=== PATIENT | male | born 1950 | race Caucasian/White ===

== ENCOUNTER 2022-04-01 21:33 | Inpatient (IN) | payer MEDICARE ==
[2022-04-01] MEDS ORDERED: HEPARIN SODIUM 1,000 UN/ML (10ML VL) IV ONE (21:59)
[2022-04-01] MEDS ORDERED: NITROGLYCERIN OINT 1 INCH/GM PACKET TOPICAL STA (21:59)
[2022-04-01] MEDS ORDERED: ASPIRIN 81 MG PO STA (21:59)
[2022-04-01] MEDS ORDERED: HEPARIN SOD,PORK IN 0.45% NACL 25,000 UNIT in 0.45% NACL 1 250ML.BAG IV SCH (22:00)
--- NOTE | 2022-04-01 22:04 | ED ---
Chest Pain HPI - General Chief Complaint: Chest Pain Stated Complaint: Chest Pain Time Seen by Provider: 04/01/22 21:48 Source: patient, family, RN notes reviewed Mode of arrival: ambulatory Limitations: no limitations - History of Present Illness Initial Comments: 71-year-old male with a history of hypertension a closed head injury who is asked she scheduled for a cardiac catheterization in 4 days who presents tonight with complaints of chest heaviness which started about one hour ago associated with shortness of breath. It was 10/10 severity he took nitroglycerin at home with improvement to 4/10 no fevers chills sweats no other current complaints or modifying factors MD Complaint: chest pain - Related Data Allergies Allergy/AdvReac Type Severity Reaction Status Date / Time egg Allergy Nausea & Verified 04/01/22 21:47 Vomiting & Diarrhea Penicillins Allergy Rash/Hives Verified 04/01/22 21:47 Review of Systems ROS Statement: Those systems with pertinent positive or pertinent negative responses have been documented in the HPI. ROS Other: All systems not noted in ROS Statement are negative. EKG Findings - EKG Results: EKG: interpreted by HILDA, sinus rhythm [place] [address] QRS duration 150 QT since QTC 451/452 that exodeviation right bundle-branch block pattern moderate T-wave abnormality) Past Medical History Past Medical History: Hypertension Additional Past Medical History / Comment(s): head injury History of Any Multi-Drug Resistant Organisms: None Reported Past Surgical History: Heart Catheterization Past Psychological History: Anxiety Smoking Status: Never smoker Past Alcohol Use History: None Reported Past Drug Use History: None Reported General Exam - General Exam Comments Initial Comments: This is a well-developed well-nourished awake alert oriented times 4 male Limitations: no limitations General appearance: alert, anxious Head exam: Present: atraumatic, normocephalic, normal inspection Eye exam: Present: normal appearance, PERRL, EOMI. Absent: scleral icterus, conjunctival injection, periorbital swelling ENT exam: Present: normal exam, mucous membranes moist Neck exam: Present: normal inspection, full ROM, other. Absent: tenderness, meningismus, lymphadenopathy Respiratory exam: Present: normal lung sounds bilaterally. Absent: respiratory distress, wheezes, rales, rhonchi, stridor Cardiovascular Exam: Present: regular rate, normal rhythm, normal heart sounds. Absent: systolic murmur, diastolic murmur, rubs, gallop, clicks GI/Abdominal exam: Present: soft, normal bowel sounds. Absent: distended, tenderness, guarding, rebound, rigid Extremities exam: Present: normal inspection, full ROM, normal capillary refill. Absent: tenderness, pedal edema, joint swelling, calf tenderness Back exam: Present: normal inspection Neurological exam: Present: alert, oriented X3, CN II-XII intact Psychiatric exam: Present: normal affect, normal mood Skin exam: Present: warm, dry, intact, normal color. Absent: rash Course Vital Signs 04/01/22 04/01/22 04/01/22 21:40 22:00 22:29 Temperature 97.5 F L Pulse Rate 62 87 Respiratory 18 20 20 Rate Blood Pressure 144/70 153/91 O2 Sat by Pulse 96 97 Oximetry 04/01/22 22:46 Temperature Pulse Rate 65 Respiratory 20 Rate Blood Pressure 142/80 O2 Sat by Pulse 99 Oximetry - Reevaluation(s) Reevaluation #1: 04/01/22 23:23 Reevaluation patient finds that he is pain-free after treatment rendered. Chest Pain MDM - MDM Imaging reviewed no acute findings. I did discuss findings with patient family members as well as with Dr. Goodman patient be admitted for inpatient evaluation and treatment consultation by Dr. Croft. Critical Care Time Critical Care Time: Yes Total Critical Care Time: 31 Critical Care Time: Critical care time includes initial presentation with history physical labs x- rays reevaluation patient responsive therapy review of old charting was available. Discussed with patient family regarding findings discussion with the admitting physician admission orders and documentation of the above Disposition Clinical Impression: Non-STEMI (non-ST elevated myocardial infarction), Chest pain Disposition: ADMITTED IP TO THIS [facility] Condition: Stable Referrals: Cisco Snow MD [Primary Care Provider] - 1-2 days Decision Date: 04/01/22 Decision Time: 23:24
--- NOTE | 2022-04-01 22:14 | XR ---
EXAMINATION TYPE: XR chest 2V DATE OF EXAM: 04/01/2022 COMPARISON: NONE HISTORY: Chest pain TECHNIQUE: 2 views FINDINGS: Heart is normal. Lungs are clear of infiltrate. Diaphragm is normal. Bony thorax is intact. There are chest leads IMPRESSION: Normal chest.
[2022-04-01 22:24] LABS: Basophils # (A) 0.1 k/uL (0-0.2); Basophils % (A) 1 %; Eosinophils # (A) 0.6 k/uL (0-0.7); Eosinophils % (A) 7 %; HCT 43.2 % (39.0-53.0); HGB 14.6 gm/dL (13.0-17.5); Lymphocytes # (A) 3.8 k/uL (1.0-4.8); Lymphocytes % (A) 41 %; MCH 30.9 pg (25.0-35.0); MCHC 33.8 g/dL (31.0-37.0); MCV 91.5 fL (80.0-100.0); Monocytes # (A) 0.5 k/uL (0-1.0); Monocytes % (A) 6 %; Neutrophils # (A) 3.9 k/uL (1.3-7.7); Neutrophils % (A) 43 %; Platelet Count 190 k/uL (150-450); RBC 4.72 m/uL (4.30-5.90); RDW 14.3 % (11.5-15.5); WBC 9.1 k/uL (3.8-10.6)
[2022-04-01 22:37] LABS: ALT 19 U/L (4-49); AST 25 U/L (17-59); African American GFR (CKD) >90 (>60 ml/min/1.73 sqM); Alkaline Phosphatase 35 U/L (38-126); Anion Gap 9 mmol/L; Blood Urea Nitrogen 11 mg/dL (9-20); Calcium 8.9 mg/dL (8.4-10.2); Carbon Dioxide 25 mmol/L (22-30); Chloride 106 mmol/L (98-107); Glucose 202 mg/dL (74-99); Lipase 112 U/L (23-300); Non-African American GFR(CKD) 81 (>60 ml/min/1.73 sqM); Potassium 4.1 mmol/L (3.5-5.1); Sodium 140 mmol/L (137-145); Total Bilirubin 0.2 mg/dL (0.2-1.3); Total Protein 6.5 g/dL (6.3-8.2)
[2022-04-01 22:40] LABS: INR 0.9 (<1.2); Partial Thromboplastin Time 24.2 sec (22.0-30.0); Prothrombin Time 10.2 sec (9.0-12.0)
[2022-04-01] MEDS ORDERED: NITROGLYCERIN SL TABS 0.4 MG TAB SUBLINGUAL PRN (23:25)
[2022-04-02] MEDS: ACETAMINOPHEN TAB 325 MG TAB PO PRN ×2 (03:20→15:41)
[2022-04-02] MEDS ORDERED: ATORVASTATIN 80 MG TAB PO STA (08:51)
[2022-04-02] MEDS ORDERED: ALPRAZolam 0.25 MG TAB PO PRN (08:51)
[2022-04-02] MEDS ORDERED: ALPRAZolam 0.5 MG TAB PO PRN (08:51)
[2022-04-02] MEDS ORDERED: ATORVASTATIN 10 MG TAB PO SCH (09:00)
[2022-04-02] MEDS ORDERED: SODIUM CHLORIDE 0.9% 1,000 ML in EMPTY BAG 1 BAG IV SCH (09:00)
[2022-04-02] MEDS ORDERED: ASPIRIN 325 MG TAB PO SCH (09:00)
[2022-04-02] MEDS: METOPROLOL SUCCINATE (ER) 50 MG TAB.ER.24H PO SCH (09:25)
--- NOTE | 2022-04-02 09:42 | P.CRDCN ---
History of Present Illness History of present illness: HISTORY OF PRESENTING ILLNESS This is a pleasant 71 year-old male past medical history significant for hypertension, type 2 diabetes, and closed head injury. He follows in the office with Dr. Croft. We have been asked to see in consultation for chest pain. Patient presents to the ER with complaints of worsening chest heaviness and shortness of breath. His chest discomfort and shortness of breath is aggravated by exertion and activity. Non-radiating. No specific alleviating factors, Nitro did not help. It has progressively gotten worse over the past 2 weeks. No associated diaphoresis, nausea, vomiting, lightheadedness, dizziness or syncope. He denies symptoms of orthopnea or PND. He does not have a history of MS, CAD, or Stroke. He denies tobacco use, quit 40+ years ago. Patient recently was evaluated in the office, he underwent Lexiscan stress test which was abnormal. Plan for cardiac catheterization on 04/05/2022 was scheduled. DIAGNOSTICS EKG reveals sinus rhythm, heart rate 60, right bundle-branch block, left axis deviation, T-wave inversions in anterior and lateral leads. Prior EKG in the office 12/2021 was similar T wave abnormalities. Recent Lexiscan in the office 02/08/2022= revealed abnormal perfusion study with reversible ischemia involving the inferolateral segment. Generalized hypokinesia more pronounced on the septal area with an EF of about 30% Recent Echo in the office 03/16/22- EF 70%, LV hyperdynamic, mild AR, Mild MR, moderate TR. Last Cardiac Catheterization 2015 revealed no significant coronary artery disease. Questionable plaque in the bifurtcation of the LAD and diagonal branch Telemetry tracings indicate sinus mechanism Chest xray no acute cardiopulmonary process Laboratory reviewed, troponin 0.062, CBC unremarkable, sodium 140, potassium 4.1, BUN 11, serum creatinine 0.9, magnesium 2.0, proBNP is 832 Current home medications include rosuvastatin 5 mg daily, metoprolol succinate 75 mg daily, Imdur 30 mg daily, low fibra 160 mg daily REVIEW OF SYSTEMS At the time of my exam: CONSTITUTIONAL: Denies fever or chills. CARDIOVASCULAR: Denies chest pain, shortness of breath, orthopnea, PND or palpitations. RESPIRATORY: Denies cough. GASTROINTESTINAL: Denies abdominal pain, diarrhea, constipation, nausea or vomiting. MUSCULOSKELETAL: Denies myalgias. NEUROLOGIC: Denies numbness, tingling, headache or weakness. ENDOCRINE: Denies fatigue, weight change, polydipsia or polyurina. GENITOURINARY: Denies burning, hematuria or urgency with micturation. HEMATOLOGIC: Denies history of anemia or bleeding. PHYSICAL EXAMINATION Blood pressure 147/64, heart rate 60, afebrile, saturation 99% on 3 L nasal cannula CONSTITUTIONAL: No apparent distress. HEENT: Head is normocephalic. Pupils are equal, round. Sclerae anicteric. Mucous membranes of the mouth are moist. No JVD. No carotid bruit. CHEST EXAMINATION: Lungs are clear to auscultation. No chest wall tenderness is noted on palpation or with deep breathing. HEART EXAMINATION: Regular rate and rhythm. S1, S2 heard. No murmurs, gallops or rub. ABDOMEN: Soft, nontender. Positive bowel sounds. EXTREMITIES: 2+ peripheral pulses, no lower extremity edema and no calf ten derness. SKIN: warm, dry NEUROLOGIC EXAMINATION: Patient is awake, alert and oriented x3. ASSESSMENT NSTEMI Hypertension Type 2 diabetes History of closed head injury PLAN We will plan for cardiac catheterization today with Dr. Croft I have discussed the risks, benefits and alternative therapies for the above- mentioned procedure and for both sedation/analgesia as well as necessary blood product administration, if indicated, as they pertain to this patient. The patient has indicated understanding and acceptance of the risks and procedures discussed. Questions have been answered appropriately and he is agreeable to move forward with the above-stated procedure. Obtain 2D echocardiogram and doppler study to assess cardiac structure and function. Continue home aspirin, statin, metoprolol. Further recommendations based on clinical course Thank you kindly for this consultation. Nurse practitioner note has been reviewed by physician. Signing provider agrees with the documented findings, assessment, and plan of care. Past Medical History Past Medical History: Diabetes Mellitus, Hypertension Additional Past Medical History / Comment(s): head injury. DM controlled with diet. History of Any Multi-Drug Resistant Organisms: None Reported Past Surgical History: Heart Catheterization Past Psychological History: Anxiety Smoking Status: Never smoker Past Alcohol Use History: None Reported Past Drug Use History: None Reported - Past Family History Father Family Medical History: Cancer, Myocardial Infarction ([place]) Additional Family Medical History / Comment(s): bladder CA Medications and Allergies Home Medications Medication Instructions Recorded Confirmed Type Fenofibrate [Lofibra] 160 mg PO DAILY 04/02/22 04/02/22 History Gabapentin 300 mg PO TID 04/02/22 04/02/22 History Isosorbide Mononitrate ER [Imdur] 30 mg PO DAILY 04/02/22 04/02/22 History LORazepam [Ativan] 0.5 - 1 mg PO DAILY PRN 04/02/22 04/02/22 History Metoprolol Succinate (ER) [Toprol 50 mg PO DAILY 04/02/22 04/02/22 History Xl] Metoprolol Succinate [Toprol XL] 25 mg PO DAILY 04/02/22 04/02/22 History Nitroglycerin Sl Tabs [Nitrostat] 0.4 mg SUBLINGUAL Q5M PRN 04/02/22 04/02/22 History Rosuvastatin Calcium [Crestor] 5 mg PO HS 04/02/22 04/02/22 History Allergies Allergy/AdvReac Type Severity Reaction Status Date / Time egg Allergy Nausea & Verified 04/02/22 08:44 Vomiting & Diarrhea Penicillins Allergy Rash/Hives Verified 04/02/22 08:44 buspirone [From BuSpar] AdvReac HEADACHE Verified 04/02/22 08:44 Physical Exam Vitals: Vital Signs Temp Pulse Pulse Resp BP BP Pulse Ox 04/02/22 03:47 97.8 F 56 L 17 147/64 99 04/02/22 00:25 97.8 F 60 18 148/71 98 04/01/22 22:46 65 20 142/80 99 04/01/22 22:29 87 20 153/91 97 04/01/22 22:00 20 04/01/22 21:40 97.5 F L 62 18 144/70 96 Intake and Output 04/01/22 04/02/22 04/02/22 22:59 06:59 14:59 Other: Voiding Method Toilet Weight 90.718 kg 90.718 kg Results 04/01/22 22:04 04/01/22 22:04 Cardiac Enzymes 04/01/22 04/01/22 04/02/22 Range/Units 22:04 22:04 01:02 AST 25 (17-59) U/L Troponin I 0.063 H* 0.061 H* (0.000-0.034) ng/mL Coagulation 04/01/22 Range/Units 22:04 PT 10.2 (9.0-12.0) sec APTT 24.2 (22.0-30.0) sec CBC 04/01/22 Range/Units 22:04 WBC 9.1 (3.8-10.6) k/uL RBC 4.72 (4.30-5.90) m/uL Hgb 14.6 (13.0-17.5) gm/dL Hct 43.2 (39.0-53.0) % Plt Count 190 (150-450) k/uL Comprehensive Metabolic Panel 04/01/22 Range/Units 22:04 Sodium 140 (137-145) mmol/L Potassium 4.1 (3.5-5.1) mmol/L Chloride 106 (98-107) mmol/L Carbon Dioxide 25 (22-30) mmol/L BUN 11 (9-20) mg/dL Creatinine 0.96 (0.66-1.25) mg/dL Glucose 202 H (74-99) mg/dL Calcium 8.9 (8.4-10.2) mg/dL AST 25 (17-59) U/L ALT 19 (4-49) U/L Alkaline Phosphatase 35 L (38-126) U/L Total Protein 6.5 (6.3-8.2) g/dL Albumin 4.0 (3.5-5.0) g/dL Current Medications Generic Name Dose Route Start Last Admin Trade Name Freq PRN Reason Stop Dose Admin Acetaminophen 650 mg 04/02/22 03:09 04/02/22 03:20 Acetaminophen Tab 325 Mg Tab PO 650 mg Q6HR PRN Administration Fever and/ or Pain Aspirin 325 mg 04/02/22 09:00 Aspirin 325 Mg Tab PO DAILY BARBRA Heparin Sodium/Sodium Chloride 250 mls @ 10 mls/hr 04/01/22 22:00 04/01/22 22:24 25,000 unit/ Sodium Chloride IV 11.0231 units/kg/hr .Q24H BARBRA 10 mls/hr Administration Protocol 11.0231 UNITS/KG/HR Nitroglycerin 0.4 mg 04/01/22 23:25 Nitroglycerin Sl Tabs 0.4 Mg Tab SUBLINGUAL Q5M PRN Chest Pain Intake and Output 04/01/22 04/02/22 04/02/22 22:59 06:59 14:59 Other: Voiding Method Toilet Weight 90.718 kg 90.718 kg 04/01/22 22:04 04/01/22 22:04
[2022-04-02] MEDS ORDERED: VERAPAMIL 2.5 MG/ML 2 ML AMP ONE (09:46)
[2022-04-02] MEDS ORDERED: IV FLUID CONTINUATION 1,000 ML IV ONE (09:50)
[2022-04-02] MEDS ORDERED: fentaNYL (PF) 50 MCG/ML 2 ML AMP ONE (09:57)
[2022-04-02] MEDS ORDERED: MIDAZOLAM 2 MG/2 ML VIAL IV ONE (10:01)
[2022-04-02] MEDS ORDERED: fentaNYL (PF) 50 MCG/ML 2 ML AMP IV ONE (10:01)
[2022-04-02] MEDS ORDERED: LIDOCAINE 1% INJ 10MG/ML (5 ML VIAL-PF) SQ ONE (10:04)
[2022-04-02] MEDS ORDERED: VERAPAMIL SYRINGE (5 MG/10 ML) INTRAARTER ONE (10:06)
[2022-04-02] MEDS ORDERED: HEPARIN SODIUM 1,000 UN/ML (10ML VL) IV ONE (10:09)
[2022-04-02] MEDS ORDERED: IOPAMIDOL-370 125ML BTL INJ ONE (10:16)
[2022-04-02] MEDS ORDERED: RX INFO: IV CONTRAST WAS GIVEN 1 EACH MISC MISCELLANE PRN (10:28)
[2022-04-02] MEDS ORDERED: FUROSEMIDE 10 MG/ML 2 ML VIAL IV ONE (10:43)
--- NOTE | 2022-04-02 10:46 | P.CARDCATH ---
Date of Procedure: 04/02/22 Preoperative Diagnosis: Unstable angina and shortness of breath Postoperative Diagnosis: Moderate plaque in the diagonal at the ostium. The rest of the presence of free of any significant focal lesions Procedure(s) Performed: Left heart catheterization without left ventriculography Description of Procedure: HISTORY: This is a 71-year-old gentleman with history of hypertension, hypertrophic cardiomyopathy who has been experiencing exertional shortness of breath. Stress test was suggestive of possible ischemia of the inferior wall with generalized hypokinesia and an ejection fraction of 30%. Patient was initiated on nitrates and advised to have cardiac catheterization. CONSENT:I have discussed the risks, benefits and alternative therapies for the above-mentioned procedure and for both sedation/analgesia as well as necessary blood product administration, if indicated, as they pertain to this patient. The patient has indicated understanding and acceptance of the risks and procedures discussed. PROCEDURE: Patient was brought to the lab in a fasting state. Patient was given some IV sedation. The right wrist is infiltrated with lidocaine and right radial artery was entered using Seldinger technique. A 6-Montserratian catheter was left in place and selective coronary arteriography was performed. Patient tolerated the procedure well. TR band was applied was applied for hemostasis. No immediate complications were noted and patient was transferred to [facility] in a stable condition Conscious Sedation: Versed 1mg Fentanyl 25 micrograms. Patient also received 4000 units of heparin Duration 19minutes HEMODYNAMICS: . The aortic pressure is about 130/70. The left ventricle end- diastolic pressure is about 25-30. There was no gradient across the aortic valve SELECTIVE CORONARY ARTERIOGRAPHY: [] LEFT MAIN: Normal length and free of occlusive disease THE LEFT ANTERIOR DESCENDING CORONARY ARTERY: . Good caliber vessel which wraps around the apex. Gives rise to good-sized second diagonal branch which has about 60% ostial lesion THE LEFT CIRCUMFLEX AND IS CORONARY ARTERY: . This is a moderate caliber vessel. There is also good-sized intermediate/OM branch. Circumflex and branches are free of occlusive disease THE RIGHT CORONARY ARTERY: . This is a large and dominant vessel. Free of occlusive disease LEFT VENTRICULOGRAPHY: . Performed FINAL IMPRESSION: Moderate plaque in the diagonal. Otherwise, no significant disease. Elevated end-diastolic pressure with impaired LV function on the echocardiogram PLAN: Maximum medical therapy and this factor modification. We'll also start the patient on Entresto , Diuretics including Lasix and Aldactone PROGNOSIS: Guarded
[2022-04-02 11:32] LABS: Chol/HDL Ratio 6.54 Ratio; LDL Cholesterol,Calculated 68.3 mg/dL (0.0-131.0)
--- NOTE | 2022-04-02 11:45 | CA ---
Transthoracic Echo Report Name: Brice Francis Age: 71 Gender: M : 1950 Exam Date: 04/02/2022 09:16 Exam Location: [facility] Ht (in): 64 Wt (lb): 200 Ordering Physician: Julianne Berry Attending/Referring Phys: Sql Manager Bruna Cantor RDCS Procedure CPT: Indications: elevated troponin, chest pain Cardiac Hx: Technical Quality: Good Contrast 1: Total Dose (mL): Contrast 2: Total Dose (mL): MEASUREMENTS (Male / Female) Normal Values 2D ECHO LV Diastolic Diameter PLAX 3.1 cm 4.2 - 5.9 / 3.9 - 5.3 cm LV Systolic Diameter PLAX 1.6 cm IVS Diastolic Thickness 2.4 cm 0.6 - 1.0 / 0.6 - 0.9 cm LVPW Diastolic Thickness 2.1 cm 0.6 - 1.0 / 0.6 - 0.9 cm LV Relative Wall Thickness 1.5 FINDINGS Left Ventricle Severely increased left ventricular wall thickness. Decreased cavity due to thickness. Left ventricular ejection fraction is estimated at 40-45%. Right Ventricle Right Atrium Left Atrium Mitral Valve Aortic Valve Tricuspid Valve Pulmonic Valve Pericardium No pericardial effusion. Aorta CONCLUSIONS #1. Limited study #2. Severe concentric left ankle hypertrophy #3. Small left ankle cavity before. #4. Left ankle function overall appears to be diminished with an ejection fraction about 40-45% Previewed by: Dr. Stephanie Croft MD (Electronically Signed) Final Date: 02 April 2022 11:44
[2022-04-02] MEDS: SODIUM CHLORIDE 0.9% 1,000 ML IV SCH (12:26)
[2022-04-02] MEDS: ISOSORBIDE MONONITRATE ER 15 MG TAB PO SCH (12:27)
[2022-04-02] MEDS: SPIRONOLACTONE 25 MG TAB PO SCH (12:27)
[2022-04-02] MEDS: SACUBITRIL/VALSARTAN 24 MG-26 MG TABLET PO SCH (20:12)
[2022-04-02] MEDS ORDERED: MELATONIN 3 MG TABLET PO SCH (21:00)
--- NOTE | 2022-04-02 21:44 | P.HPIM ---
History of Present Illness H&P Date: 04/02/22 Chief Complaint: Shortness of breath This is a pleasant 71-year-old patient who follows with Cisco Snow. Chief Radiology Dr. Gaitan. Chronic stable medical conditions include diabetes, hypertension, hyperlipidemia, anxiety. Patient been getting short of breath on and off for some time. Especially with activity. Some chest discomfort.. No edema. No fever no chills. He had a scheduled cardiac catheterization on April 05 following abnormal Lexiscan nuclear stress test. No dizziness or lightheadedness. No perspiration. As symptoms have progressively gotten worse especially yesterday patient decided to come in. Had some mild posterior troponin. Early this morning patient underwent a cardiac catheterization. Was found of a plaque dose at 11 disease otherwise. Medical management was decided. Review of systems: GEN.: Tired EYES: None HEENT: None NECK: None RESPIRATORY: As above CARDIOVASCULAR: As above GASTROINTESTINAL: None GENITOURINARY: None MUSCULOSKELETAL: None LYMPHATICS: None HEMATOLOGICAL: None PSYCHIATRY: None NEUROLOGICAL: None Past medical history to include: Diabetes, hypertension, hyperlipidemia, anxiety Social history: No smoking or alcohol. . Used to be a [employer] Family history: Bladder cancer. [place]. Physical examination: VITAL SIGNS: 97.5, 62, 18, 140/70, and 6% room air upon presentation GENERAL: BMI 34.3, reclining in bed awake comfortable. EYES: Pupils equal. Conjunctiva normal. HEENT: External appearance of nose and ears normal, oral cavity grossly normal. NECK: JVD not raised; masses not palpable. HEART: First and second heart sounds are normal; no edema. LUNGS: Respiratory rate normal; clear to auscultation. ABDOMEN: Soft, nontender, liver spleen not palpable, no masses palpable. PSYCH: Alert and oriented x3; mood and affect normal. MUSCULOSKELETAL:No Clubbing/cyanosis;muscles-grossly intact NEUROLOGICAL: Cranial nerves grossly intact; no facial asymmetry, power and sensation grossly intact. LYMPHATICS: No lymph nodes palpable in the axilla and neck INVESTIGATIONS, reviewed in the clinical context: White count 9.1 hemoglobin 14.6 platelets 190 potassium 4.1 creatinine 0.96 Troponin I 0.063, 0.061, 0.057 LDL 68 triglycerides 243 EKG tracing personally reviewed by fl-sinus rhythm. T waves in inferolateral leads Chest x-ray film personally reviewed by me-cardiomegaly Limited 2-D echocardiogram: Severely increased left ventricular wall thickness. EF 40-45%. Cardiac catheterization: Moderate plaque in the diagonal at the ostium. Otherwise no other significant disease. Assessment plan: -Non-ST elevation myocardial infarction Cardiac cath showing moderateplaque -Hyperlipidemia Crestor 5 mg daily at bedtime -Essential hypertension Toprol-XL 50 mg a day -Cardiomyopathy. EF 40-45% Entresto one tablet twice a day started today. Aldactone 25 mg daily. Toprol-XL. Lasix 40 mg a day. Patient status post cardiac cath. Medications above. Discussed with the patient. Repeat labs in the morning. Past Medical History Past Medical History: Diabetes Mellitus, Hypertension Additional Past Medical History / Comment(s): head injury. DM controlled with diet. History of Any Multi-Drug Resistant Organisms: None Reported Past Surgical History: Heart Catheterization Past Psychological History: Anxiety Smoking Status: Never smoker Past Alcohol Use History: None Reported Past Drug Use History: None Reported - Past Family History Father Family Medical History: Cancer, Myocardial Infarction ([place]) Additional Family Medical History / Comment(s): bladder CA Medications and Allergies Home Medications Medication Instructions Recorded Confirmed Type Fenofibrate [Lofibra] 160 mg PO DAILY 04/02/22 04/02/22 History Gabapentin 300 mg PO TID 04/02/22 04/02/22 History Isosorbide Mononitrate ER [Imdur] 30 mg PO DAILY 04/02/22 04/02/22 History LORazepam [Ativan] 0.5 - 1 mg PO DAILY PRN 04/02/22 04/02/22 History Metoprolol Succinate (ER) [Toprol 50 mg PO DAILY 04/02/22 04/02/22 History Xl] Metoprolol Succinate [Toprol XL] 25 mg PO DAILY 04/02/22 04/02/22 History Nitroglycerin Sl Tabs [Nitrostat] 0.4 mg SUBLINGUAL Q5M PRN 04/02/22 04/02/22 History Rosuvastatin Calcium [Crestor] 5 mg PO HS 04/02/22 04/02/22 History Allergies Allergy/AdvReac Type Severity Reaction Status Date / Time egg Allergy Nausea & Verified 04/02/22 08:44 Vomiting & Diarrhea Penicillins Allergy Rash/Hives Verified 04/02/22 08:44 buspirone [From BuSpar] AdvReac HEADACHE Verified 04/02/22 08:44 Physical Exam Vitals: Vital Signs Temp Pulse Pulse Resp BP BP Pulse Ox 04/02/22 09:22 98.1 F 57 L 18 180/78 98 04/02/22 03:47 97.8 F 56 L 17 147/64 99 04/02/22 00:25 97.8 F 60 18 148/71 98 04/01/22 22:46 65 20 142/80 99 04/01/22 22:29 87 20 153/91 97 04/01/22 22:00 20 04/01/22 21:40 97.5 F L 62 18 144/70 96 Intake and Output 04/01/22 04/02/22 04/02/22 22:59 06:59 14:59 Intake Total 1107.333 Balance 1107.333 Intake: IV 100 Intake, IV Titration 1007.333 Amount Heparin Sod,Pork in 0.45% 107.333 NaCl 25,000 unit In 0.45 % NaCl 1 250ml.bag @ 11. 0231 UNITS/KG/HR 10 mls/ hr IV .Q24H BARBRA Rx#: [id number] Sodium Chloride 0.9% 1, 900 000 ml In Empty Bag 1 bag @ 1 ML/KG/HR 90.718 mls/ hr IV .Q11H2M BARBRA Rx#: [id number] Other: Voiding Method Toilet Toilet Weight 90.718 kg 90.718 kg Results CBC & Chem 7: 04/01/22 22:04 04/01/22 22:04 Labs: Abnormal Lab Results - Last 24 Hours (Table) 04/01/22 04/01/22 04/02/22 Range/Units 22:04 22:04 01:02 APTT (22.0-30.0) sec Glucose 202 H (74-99) mg/dL Alkaline Phosphatase 35 L (38-126) U/L Troponin I 0.063 H* 0.061 H* (0.000-0.034) ng/mL 04/02/22 04/02/22 Range/Units 07:20 07:20 APTT 42.7 H (22.0-30.0) sec Glucose (74-99) mg/dL Alkaline Phosphatase (38-126) U/L Troponin I 0.057 H* (0.000-0.034) ng/mL Thrombosis Risk Factor Assmnt - Choose All That Apply Each Factor Represents 1 point: Obesity (BMI >25) Each Risk Factor Represents 2 Points: Age 61-74 years Other congenital or acquired thrombophilia - If yes, enter type in comment: No Thrombosis Risk Factor Assessment Total Risk Factor Score: 3 Thrombosis Risk Factor Assessment Level: Moderate Risk
[2022-04-03] MEDS ORDERED: HEPARIN SODIUM,PORCINE 2,500 UNIT in SODIUM CHLORIDE 0.9% 250 ML IRRIGATION PRN (07:00)
[2022-04-03] MEDS ORDERED: HEPARIN SODIUM,PORCINE 10,000 UNIT in SODIUM CHLORIDE 0.9% 1,000 ML IRRIGATION PRN (07:00)
[2022-04-03 08:34] LABS: African American GFR (CKD) >90 (>60 ml/min/1.73 sqM); Anion Gap 13 mmol/L; Blood Urea Nitrogen 14 mg/dL (9-20); Calcium 8.9 mg/dL (8.4-10.2); Carbon Dioxide 20 mmol/L (22-30); Chloride 107 mmol/L (98-107); Glucose 186 mg/dL (74-99); Non-African American GFR(CKD) 82 (>60 ml/min/1.73 sqM); Sodium 140 mmol/L (137-145)
[2022-04-03 08:35] VITALS: RESP 18
[2022-04-03] MEDS: SODIUM CHLORIDE 0.9% 1,000 ML IV SCH (08:38)
[2022-04-03] MEDS: ISOSORBIDE MONONITRATE ER 15 MG TAB PO SCH (08:39)
[2022-04-03] MEDS: METOPROLOL SUCCINATE (ER) 50 MG TAB.ER.24H PO SCH (08:39)
[2022-04-03] MEDS: SPIRONOLACTONE 25 MG TAB PO SCH (08:39)
[2022-04-03] MEDS: SACUBITRIL/VALSARTAN 24 MG-26 MG TABLET PO SCH (08:39)
[2022-04-03] MEDS ORDERED: FUROSEMIDE 40 MG TAB PO SCH (09:00)
[2022-04-03] MEDS ORDERED: ASPIRIN 81 MG PO SCH (09:00)
[2022-04-03] MEDS ORDERED: FENOFIBRATE 160 MG TAB PO SCH (09:00)
[2022-04-03] MEDS ORDERED: ATORVASTATIN 10 MG TAB PO SCH (09:00)
[2022-04-03 11:13] VITALS: BP 140/60; PULSE 86; TEMP 97.4
--- NOTE | 2022-04-03 12:16 | P.PN ---
Subjective This is a pleasant 71 year-old male past medical history significant for hypertension, type 2 diabetes, and closed head injury. He follows in the office with Dr. Croft. We have been asked to see in consultation for chest pain. Patient presents to the ER with complaints of worsening chest heaviness and shortness of breath. His chest discomfort and shortness of breath is aggravated by exertion and activity. Non-radiating. No specific alleviating factors, Nitro did not help. It has progressively gotten worse over the past 2 weeks. No associ ated diaphoresis, nausea, vomiting, lightheadedness, dizziness or syncope. He denies symptoms of orthopnea or PND. He does not have a history of ID, CAD, or Stroke. He denies tobacco use, quit 40+ years ago. Patient recently was evaluated in the office, he underwent Lexiscan stress test which was abnormal. Plan for cardiac catheterization on 04/05/2022 was scheduled. DIAGNOSTICS EKG reveals sinus rhythm, heart rate 60, right bundle-branch block, left axis deviation, T-wave inversions in anterior and lateral leads. Prior EKG in the office 12/2021 was similar T wave abnormalities. Recent Lexiscan in the office 02/08/2022= revealed abnormal perfusion study with reversible ischemia involving the inferolateral segment. Generalized hypokinesia more pronounced on the septal area with an EF of about 30% Recent Echo in the office 03/16/22- EF 70%, LV hyperdynamic, mild AR, Mild MR, moderate TR. Chest xray no acute cardiopulmonary process Laboratory reviewed, troponin 0.062, 0.05. 04/02/2022- Patient underwent cardiac catheterization with Dr. Croft which revealed The left ventricle end-diastolic pressure is about 25-30, good-sized second diagonal branch which has about 60% ostial lesion. No other significant disease. Echocardiogram revealed EF 4045%, severe concentric LVH 04/03/2022 Patient seen and examined at bedside, no acute distress. He denies any further chest pain. Denies shortness of breath. Headache overnight. Vitals signs are stable. Patient is currently maintained on aspirin 81 mg daily, atorvastatin 10 mg da enriqueta, metoprolol succinate 50mg nightly, Lasix 40 mg daily, Entresto 2426mg twice a day, spironolactone 25 mg daily PHYSICAL EXAMINATION Blood pressure This morning 162/72, repeat 140/60, heart rate 86, afebrile, saturations 90% room air CONSTITUTIONAL: No apparent distress. HEENT: Neck supple. No JVD. CHEST EXAMINATION: Lungs are clear to auscultation. No chest wall tenderness is noted on palpation or with deep breathing. HEART EXAMINATION: Regular rate and rhythm. S1, S2 heard. No murmurs, gallops or rub. ABDOMEN: Soft, nontender. Positive bowel sounds. EXTREMITIES: 2+ peripheral pulses, no lower extremity edema and no calf tenderness. SKIN: Right radial cath site, clean dry intact, no hematoma noted. NEUROLOGIC EXAMINATION: Patient is awake, alert and oriented x3. ASSESSMENT Elevated troponin and chest pain, likely secondary to elevated LVEDP and hypertension Coronary artery disease, Moderate plaque in the diagonal Non-ischemic cardiomyopathy, EF 40-45% Elevated LVEDP Hypertension Type 2 diabetes History of closed head injury PLAN Discontinue metoprolol succinate, start carvedilol 6.25mg BID Continue Entresto BID, spironolactone, Lasix Increase rosuvastatin to 10mg daily Continue aspirin, lofibra From cardiology perspective, patient is stable to be discharged. Follow-up with Dr. Croft in one week Nurse practitioner note has been reviewed by physician. Signing provider agrees with the documented findings, assessment, and plan of care. Objective - Vital Signs Vital signs: Vital Signs Temp 97.4 F L 04/03/22 11:12 Pulse 86 04/03/22 11:12 Resp 18 04/03/22 11:12 BP 140/60 04/03/22 11:12 Pulse Ox 96 04/03/22 08:35 FiO2 Intake & Output 04/02/22 04/03/22 04/03/22 18:59 06:59 18:59 Intake Total 2006.333 550 Balance 2006.333 550 Weight 97 kg Intake: IV 100 10 Invasive Line 1 10 Intake, IV Titration 1007.333 Amount Heparin Sod,Pork in 0.45% 107.333 NaCl 25,000 unit In 0.45 % NaCl 1 250ml.bag @ 11. 0231 UNITS/KG/HR 10 mls/ hr IV .Q24H [facility] Rx#: [id number] Sodium Chloride 0.9% 1, 900 000 ml In Empty Bag 1 bag @ 1 ML/KG/HR 90.718 mls/ hr IV .Q11H2M [facility] Rx#: [id number] Oral 900 540 Other: Voiding Method Toilet Toilet Toilet # Voids 2 - Labs CBC & Chem 7: 04/01/22 22:04 04/03/22 07:51 Labs: Abnormal Lab Results - Last 24 Hours (Table) 04/03/22 Range/Units 07:51 Carbon Dioxide 20 L (22-30) mmol/L Glucose 186 H (74-99) mg/dL
[2022-04-03] MEDS ORDERED: carvediloL 6.25 MG TAB PO SCH (17:30)
--- NOTE | 2022-04-03 19:23 | P.DS ---
Providers Date of admission: 04/01/22 23:25 Expected date of discharge: 04/03/22 Attending physician: Jorge Goodman Consults: 04/01/22 23:25 Consult Physician Urgent Consulting Provider: Stephanie Croft Consult Reason/Comments: Chest pain, elevated troponin Do you want consulting provider notified?: Yes Primary care physician: Cisco Snow MD Hospital Course: Chief Complaint: Shortness of breath This is a pleasant 71-year-old patient who follows with Cisco Snow. Spinning L[employer] Dr. Gaitan. Chronic stable medical conditions include diabetes, hypertension, hyperlipidemia, anxiety. Patient been getting short of breath on and off for some time. Especially with activity. Some chest discomfort.. No edema. No fever no chills. He had a scheduled cardiac catheterization on April 05 following abnormal Lexiscan nuclear stress test. No dizziness or lightheadedness. No perspiration. As symptoms have progressively gotten worse especially yesterday patient decided to come in. Had some mild posterior troponin. Early this morning patient underwent a cardiac catheterization. Found to have a moderate plaque. No disease otherwise.. Medical management was decided. April 03: Up and about. No further cardiac symptoms. Cleared by cardiology for discharge Past medical history to include: Diabetes, hypertension, hyperlipidemia, anxiety Social history: No smoking or alcohol. . 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 [place]. Physical examination: VITAL SIGNS: 97.4, 86, 18, 140/60, 98% room air GENERAL: comfortable. EYES: Pupils equal. Conjunctiva normal. HEENT: External appearance of nose and ears normal, oral cavity grossly normal. NECK: JVD not raised; masses not palpable. HEART: First and second heart sounds are normal; no edema. LUNGS: Respiratory rate normal; clear to auscultation. ABDOMEN: Soft, nontender, liver spleen not palpable, no masses palpable. PSYCH: Alert and oriented x3; mood and affect normal. MUSCULOSKELETAL:No Clubbing/cyanosis;muscles-grossly intact INVESTIGATIONS, reviewed in the clinical context: April 03: Potassium 4 creatinine 0.95 White count 9.1 hemoglobin 14.6 platelets 190 potassium 4.1 creatinine 0.96 Troponin I 0.063, 0.061, 0.057 LDL 68 triglycerides 243 EKG tracing personally reviewed by sd-sinus rhythm. T waves in inferolateral leads Chest x-ray film personally reviewed by me-cardiomegaly Limited 2-D echocardiogram: Severely increased left ventricular wall thickness. EF 40-45%. Cardiac catheterization: Moderate plaque in the diagonal at the ostium. Otherwise no other significant disease. Assessment plan: -Non-ST elevation myocardial infarction Cardiac cath showing moderateplaque -CAD with moderate plaque -Hyperlipidemia Crestor 5 mg daily at bedtime -Essential hypertension Toprol-XL 50 mg a day -Cardiomyopathy. EF 40-45% Entresto 24/26 one tablet twice a day started today. Aldactone 25 mg daily. Coreg Lasix 40 mg a day. Disposition: Home Plan - Discharge Summary Discharge Rx Participant: No New Discharge Prescriptions: New Aspirin 81 mg PO DAILY 90 Days #90 tab Sacubitril/Valsartan [Entresto 24 mg-26 mg Tablet] 1 each PO BID 30 Days #60 tab Furosemide [Lasix] 40 mg PO DAILY 90 Days #90 tab Spironolactone [Aldactone] 25 mg PO DAILY 90 Days #90 tab carvediloL [Coreg] 6.25 mg PO BID-W/MEALS 30 Days #60 tab Rosuvastatin [Crestor] 10 mg PO DAILY 90 Days #90 tablet Continue Fenofibrate [Lofibra] 160 mg PO DAILY Nitroglycerin Sl Tabs [Nitrostat] 0.4 mg SUBLINGUAL Q5M PRN PRN Reason: Chest Pain LORazepam [Ativan] 0.5 - 1 mg PO DAILY PRN PRN Reason: Anxiety Gabapentin 300 mg PO TID Discontinued Metoprolol Succinate [Toprol XL] 25 mg PO DAILY Metoprolol Succinate (ER) [Toprol Xl] 50 mg PO DAILY Isosorbide Mononitrate ER [Imdur] 30 mg PO DAILY Rosuvastatin Calcium [Crestor] 5 mg PO HS Discharge Medication List Fenofibrate [Lofibra] 160 mg PO DAILY 04/02/22 [History] Gabapentin 300 mg PO TID 04/02/22 [History] LORazepam [Ativan] 0.5 - 1 mg PO DAILY PRN 04/02/22 [History] Nitroglycerin Sl Tabs [Nitrostat] 0.4 mg SUBLINGUAL Q5M PRN 04/02/22 [History] Aspirin 81 mg PO DAILY 90 Days #90 tab 04/03/22 [Rx] Furosemide [Lasix] 40 mg PO DAILY 90 Days #90 tab 04/03/22 [Rx] Rosuvastatin [Crestor] 10 mg PO DAILY 90 Days #90 tablet 04/03/22 [Rx] Sacubitril/Valsartan [Entresto 24 mg-26 mg Tablet] 1 each PO BID 30 Days #60 tab 04/03/22 [Rx] Spironolactone [Aldactone] 25 mg PO DAILY 90 Days #90 tab 04/03/22 [Rx] carvediloL [Coreg] 6.25 mg PO BID-W/MEALS 30 Days #60 tab 04/03/22 [Rx] Follow up Appointment(s)/Referral(s): Cisco Snow MD [Primary Care Provider] - 1-2 days (Offices will call with an appointment date and time) Stephanie Croft MD [STAFF PHYSICIAN] - 04/16/22 3:15 pm (SATURDAY AT [facility]) Patient Instructions/Handouts: Chest Pain (DC) Discharge Disposition: HOME WITH HOME HEALTH SERVICES
== END 2022-04-03 12:49 | disposition home or self-care (01) | DRG 281 ==
LOC: EC 21:33 → 3SCARD 23:25
PROVIDERS: ADMIT Hospitalist; ATTEND Hospitalist
PROC: B2111ZZ Fluoroscopy of Multiple Coronary Arteries using Low Osmolar Contrast (ICD-10-PCS; principal; 2022-04-02 11:05)
PROC: 4A023N7 Measurement of Cardiac Sampling and Pressure, Left Heart, Percutaneous Approach (ICD-10-PCS; principal; 2022-04-02 11:05)
DX: I21.4 Non-ST elevation (NSTEMI) myocardial infarction (principal); I42.8 Other cardiomyopathies; E11.9 Type 2 diabetes mellitus without complications; I45.10 Unspecified right bundle-branch block; I25.110 Atherosclerotic heart disease of native coronary artery with unstable angina pectoris; I10 Essential (primary) hypertension; E78.5 Hyperlipidemia, unspecified; F41.9 Anxiety disorder, unspecified; R51.9 Headache, unspecified; E66.9 Obesity, unspecified; Z68.36 Body mass index [BMI] 36.0-36.9, adult; Z79.899 Other long term (current) drug therapy; Z87.820 Personal history of traumatic brain injury; Z88.0 Allergy status to penicillin; Z91.012 Allergy to eggs; Z80.52 Family history of malignant neoplasm of bladder; Z82.49 Family history of ischemic heart disease and other diseases of the circulatory system
CPT/HCPCS: 36415; 71046; 80048; 80053; 80061; 83690; 83735; 83880; 84484; 85025; 85610; 85730; 93005; 93308; 93458; 96374; 99291